=== PATIENT | female | born 1970 | race Hispanic/Latino ===

== ENCOUNTER → 2019-05-05 | Outpatient (CLI) | payer MEDICARE ==
[~2019-05-05] MED LIST: IOPAMIDOL 370 MG/ML 200 ML INFUS..BTL INJ ONE; SODIUM CHLORIDE 0.9% 100 ML ONE
[2019-05-05 14:26] LABS: BLOOD UREA NITROGEN 5 mg/dL (8-26); BUN/CREATININE RATIO 13 (6-25); CREATININE, SERUM 0.4 mg/dL (0.6-1.1); EST GLOMERULAR FILTRATION RATE > 60 ML/MIN (60-)
--- NOTE | 2019-05-05 16:10 | Diagnostic Imaging Report ---
CT of the abdomen and pelvis, without and with contrast. History: Left kidney lesion. Comparison: None available. Technique: Initial axial images of the abdomen was obtained followed by postcontrast images of the abdomen in the arterial phase. Subsequently venous phase images were obtained of the abdomen and pelvis. No enteric contrast material was administered. Coronal sagittal reformats were reviewed. RADIATION DOSE: Total DLP: 2623.88 mGy*cm Dose modulation, iterative reconstruction, and/or weight based adjustment of the mA/kV was utilized to reduce the radiation dose to as low as reasonably achievable. FINDINGS: The visualized lungs are unremarkable. The imaged portion of the heart demonstrates no significant abnormalities. The liver is normal in size and attenuation without evidence for focal abnormality. The gallbladder surgically absent. There is no biliary ductal dilatation. The stomach, pancreas, and bilateral adrenal glands are unremarkable. The spleen is not present and appears surgically absent. There is there is a 2.2 x 2.5 cm soft tissue lesion within left upper quadrant which likely reflects residual splenic tissue/splenule status post splenectomy. The kidneys are normal in size and location and concentrate contrast material appropriately. There is a 1.9 x 1.9 x 2.1 cm exophytic enhancing lesion identified arising off the inferior pole of the left kidney. There is no evidence for nephrolithiasis or hydronephrosis. The ureters are normal in course and caliber. Please note evaluation of the pelvic contents are limited secondary to streak artifact from left hip hardware. The visualized portion of the bladder appears unremarkable. The uterus and adnexa are grossly unremarkable. The abdominal aorta is normal course and caliber with atherosclerotic calcifications. The IVC is unremarkable. Multiple vessels are identified in the region the main portal vein within the geetha hepatis which may represent cavernous transformation of the portal vein. The SMV appears patent. The splenic vein is absent. The bilateral renal arteries and veins are patent. Please note evaluation the bowel is limited without the use of enteric contrast material. The visualized small and large bowel demonstrate no evidence of obstruction or inflammation. The appendix appears unremarkable. Diverticula are noted within the sigmoid and descending colon. There is no evidence for acute diverticulitis. There is no ascites or intraperitoneal free air. No abnormally enlarged lymph nodes are identified within the abdomen or pelvis. There are postsurgical changes from prior left hip arthroplasty. The osseous structures demonstrate no evidence for acute fracture or destructive process. The extra peritoneal soft tissues are unremarkable. IMPRESSION: 1. 1.9 x 1.9 x 2.1 cm exophytic, enhancing lesion identified arising off the inferior pole the left kidney concerning for a neoplastic process such as RCC. Prompt urological consultation is recommended. 2. Status post cholecystectomy and splenectomy. Soft tissue lesion identified within the left upper quadrant which is favored to represent residual splenic tissue/splenule. 3. Colonic diverticulosis without evidence for acute diverticulitis. Signed by: Dr. Rubin Ferris MD on 05/05/2019 4:06 PM
== END ==
LOC: CT 13:58
PROVIDERS: ATTEND Urology
DX: N28.89 Other specified disorders of kidney and ureter (principal)
CPT/HCPCS: 36415; 74178; 82565; 84520; J7050; Q9967